=== PATIENT | female | born 1980 | race Hispanic/Latino ===

== ENCOUNTER 2018-12-26 09:32 | Emergency (ER) | payer MEDICAID, OTHER ==
[2018-12-26 10:20] LABS: BILIRUBIN,URINE Negative (NEGATIVE); COLOR,URINE Yellow (YELLOW); GLUCOSE, URINE (UA) Negative (NEGATIVE); KETONES,URINE Negative (NEGATIVE); LEUKOCYTE ESTERASE ,URINE Large (NEGATIVE); NITRATE,URINE Negative (NEGATIVE); OCCULT BLOOD,URINE Large (NEGATIVE); PH,URINE 5.5 (5.0-8.0); PROTEIN,URINE Trace (NEGATIVE)
[2018-12-26 10:21] LABS: HCG,QUAL RESULT NEGATIVE (NEGATIVE)
[2018-12-26 10:22] LABS: APPEARANCE,URINE CLOUDY (CLEAR)
[2018-12-26] MEDS ORDERED: CEFTRIAXONE SODIUM 1 GM ONE (10:25)
[2018-12-26] MEDS ORDERED: LIDOCAINE HCL-MPF 1% 2ML VIAL ONE (10:25)
[2018-12-26 10:38] LABS: BACTERIA,URINE Few /HPF (None Seen); SQUAMOUS EPITHELIAL CELL,UR Few /HPF (0-2)
== END 2018-12-26 10:52 | disposition home or self-care (01) ==
LOC: EDH 09:32
DX: N39.0 Urinary tract infection, site not specified (principal); Z98.890 Other specified postprocedural states; Z87.891 Personal history of nicotine dependence; Z90.710 Acquired absence of both cervix and uterus
CPT/HCPCS: 81001; 81025; 96372; 99283; J0696; J3490

== ENCOUNTER 2019-04-06 01:35 | Emergency (ER) | payer MEDICAID, OTHER ==
[2019-04-06] MEDS ORDERED: FAMOTIDINE 20MG TAB 20 MG TAB ONE (02:07)
[2019-04-06] MEDS ORDERED: ONDANSETRON ODT 4 MG TAB ONE (02:08)
[2019-04-06] MEDS ORDERED: PANTOPRAZOLE SODIUM 40 MG TABLET.DR PO ONE (02:08)
[2019-04-06] MEDS ORDERED: PROMETHAZINE HCL 25 MG/ML 1ML AMPULE IM ONE (02:18)
== END 2019-04-06 03:25 | disposition home or self-care (01) ==
LOC: EDH 01:35
DX: R11.2 Nausea with vomiting, unspecified (principal); R10.13 Epigastric pain; Z98.890 Other specified postprocedural states
CPT/HCPCS: 96372; 99284; J2550

== ENCOUNTER 2021-01-10 15:49 | Emergency (ER) | payer MEDICAID, OTHER ==
[2021-01-10 16:06] LABS: APPEARANCE,URINE Clear (CLEAR); BILIRUBIN,URINE Negative (NEGATIVE); COLOR,URINE Yellow (YELLOW); GLUCOSE, URINE (UA) Negative (NEGATIVE); KETONES,URINE Negative (NEGATIVE); LEUKOCYTE ESTERASE ,URINE Large (NEGATIVE); NITRATE,URINE Negative (NEGATIVE); OCCULT BLOOD,URINE Negative (NEGATIVE); PROTEIN,URINE Negative (NEGATIVE); UROBILINOGEN,URINE 0.2 mg/dL (0.2-1.0)
[2021-01-10 16:09] LABS: HCG,QUAL RESULT NEGATIVE (NEGATIVE)
[2021-01-10 16:20] LABS: BASOPHILS % (AUTO) 0.5 % (0.0-5.0); EOSINOPHILS % (AUTO) 0.3 % (0.0-8.0); LYMPHOCYTES % (AUTO) 28.6 % (21.0-51.0); MEAN CORPUSCULAR HEMOGLOBIN 25.4 pg (27.0-33.0); MEAN CORPUSCULAR HGB CONC 30.6 g/dL (32.0-36.0); MEAN CORPUSCULAR VOLUME 82.9 fL (79-99); MONOCYTES % (AUTO) 3.6 % (3.0-13.0); NEUTROPHILS % (AUTO) 66.7 % (40.0-77.0); PLATELET COUNT (AUTO) 318 K/uL (130-400); RED BLOOD CELL COUNT(AUTO) 3.86 MIL/uL (4.00-5.50); RED CELL DISTRIBUTION WIDTH 14.5 % (11.0-15.5); WHITE BLOOD COUNT (AUTO) 7.8 K/uL (4.8-10.8)
[2021-01-10] MEDS ORDERED: KETOROLAC TROMETHAMINE 30MG/ML ONE (16:24)
[2021-01-10] MEDS ORDERED: CEFTRIAXONE SODIUM 1 GM ONE (16:24)
[2021-01-10] MEDS ORDERED: SODIUM CHLORIDE 0.9% 1000ML 1,000 ML IV ONE (16:25)
[2021-01-10 16:26] LABS: BACTERIA,URINE Few /HPF (None Seen); MUCUS,URINE None Seen LPF (None Seen); RBC,URINE 0-1 /HPF (0-1); SQUAMOUS EPITHELIAL CELL,UR 0-2 /HPF (0-2)
[2021-01-10 16:30] LABS: CREATININE 0.7 mg/dL (0.5-1.5); POTASSIUM 3.2 mmol/L (3.5-5.1)
[2021-01-10 16:35] LABS: ALBUMIN 3.9 g/dL (3.5-5.0); BILIRUBIN,TOTAL 0.2 mg/dL (0.2-1.0); TOTAL PROTEIN, SERUM 7.5 g/dL (6.0-8.3)
== END 2021-01-10 17:20 | disposition home or self-care (01) ==
LOC: EDH 15:49
DX: N39.0 Urinary tract infection, site not specified (principal)
CPT/HCPCS: 36415; 80053; 81001; 81025; 83690; 85025; 87088; 96365; 96375; 99284; J0696; J1885; J7030

== ENCOUNTER 2021-04-18 17:22 | Emergency (ER) | payer OTHER ==
[~2021-04-18] VITALS: Ht 152.4 cm; Wt 56.7 kg
[2021-04-18 17:27] VITALS: BP 98/59
[2021-04-18] MEDS ORDERED: PHENAZOPYRIDINE HCL 200 MG TABLET PO STA (17:42)
[2021-04-18] MEDS ORDERED: LACTATED RINGERS 1000ML 1,000 ML IV ONE (17:45)
[2021-04-18] MEDS ORDERED: KETOROLAC 30MG VIAL (30MG/ML) IVP ONE (17:45)
[2021-04-18 18:03] LABS: APPEARANCE,URINE CLEAR (CLEAR); BILIRUBIN,URINE SMALL (NEGATIVE); COLOR,URINE ORANGE (YELLOW); GLUCOSE, URINE (UA) 250 mg/dL (NEGATIVE); KETONES,URINE 5 mg/dL (NEGATIVE); LEUKOCYTE ESTERASE ,URINE TRACE (NEGATIVE); NITRATE,URINE POSITIVE (NEGATIVE); OCCULT BLOOD,URINE NEGATIVE (NEGATIVE); PH,URINE 5.5 (5.0-8.0); PROTEIN,URINE 100 mg/dL (NEGATIVE)
[2021-04-18 18:05] LABS: BASOPHILS % (AUTO) 0.3 % (0.0-5.0); EOSINOPHILS % (AUTO) 0.2 % (0.0-8.0); HEMATOCRIT 30.9 % (36-48); LYMPHOCYTES % (AUTO) 17.8 % (21.0-51.0); MEAN CORPUSCULAR HEMOGLOBIN 25.4 pg (27.0-33.0); MEAN CORPUSCULAR HGB CONC 30.7 g/dL (32.0-36.0); MEAN CORPUSCULAR VOLUME 82.6 fL (79-99); MONOCYTES % (AUTO) 2.9 % (3.0-13.0); NEUTROPHILS % (AUTO) 78.4 % (40.0-77.0); PLATELET COUNT (AUTO) 338 K/uL (130-400); RED BLOOD CELL COUNT(AUTO) 3.74 MIL/uL (4.00-5.50); RED CELL DISTRIBUTION WIDTH 14.9 % (11.0-15.5); WHITE BLOOD COUNT (AUTO) 10.2 K/uL (4.8-10.8)
[2021-04-18 18:11] LABS: RBC,URINE 0-1 /HPF (0-1)
[2021-04-18 18:12] LABS: BACTERIA,URINE Rare /HPF (None Seen); SQUAMOUS EPITHELIAL CELL,UR Few /HPF (0-2)
[2021-04-18 18:16] LABS: CREATININE 0.7 mg/dL (0.5-1.5); POTASSIUM 3.8 mmol/L (3.5-5.1)
[2021-04-18 18:21] LABS: ALBUMIN 3.6 g/dL (3.5-5.0); BILIRUBIN,TOTAL 0.2 mg/dL (0.2-1.0); TOTAL PROTEIN, SERUM 7.5 g/dL (6.0-8.3)
[2021-04-18] MEDS ORDERED: CEFTRIAXONE 500MG VIAL IV STA (18:39)
[2021-04-18] MEDS ORDERED: PHEN-846 PO (19:01)
[2021-04-18] MEDS ORDERED: CIPR500S4 PO (19:01)
[2021-04-18 19:14] VITALS: BP 112/66
== END 2021-04-18 19:23 | disposition home or self-care (01) ==
LOC: EDH 17:22
DX: N39.0 Urinary tract infection, site not specified (principal); Z87.442 Personal history of urinary calculi; Z98.890 Other specified postprocedural states; Z79.899 Other long term (current) drug therapy
CPT/HCPCS: 36415; 80053; 81001; 81025; 85025; 87088; 96361; 96365; 96375; 99284; J0696; J1885; J7120